=== PATIENT | female | born 1980 | race African-American/Black ===

== ENCOUNTER 2019-03-21 21:33 | Emergency (ER) | payer OTHER ==
[2019-03-21 22:03] VITALS: TEMP 98.6; BMI 29.9
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
[2019-03-21] MEDS ORDERED: ACETAMINOPHEN 325 MG TABLET (FP) PO ONE (22:22)
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
[2019-03-22 01:01] VITALS: BP 107/61; PULSE 68
== END 2019-03-22 01:17 | disposition home or self-care (01) ==
LOC: JER 21:33
DX: T74.11XA Adult physical abuse, confirmed, initial encounter (principal); S00.83XA Contusion of other part of head, initial encounter; Y07.01 Husband, perpetrator of maltreatment and neglect; Y00.XXXA Assault by blunt object, initial encounter; Y93.89 Activity, other specified; Y92.9 Unspecified place or not applicable
CPT/HCPCS: 70450-TC; 70486-TC; 84703; 99283-25